=== PATIENT | male | born 1980 | race African-American/Black ===

== ENCOUNTER 2016-08-10 10:58 | Emergency (ER) | payer OTHER ==
--- NOTE | 2016-08-10 11:29 | ER Document Report ---
ED Psych Disorder / Suicide - General Chief Complaint: Suicidal Ideation Stated Complaint: PSYCH EVAL Time Seen by Provider: 08/10/16 11:16 Mode of Arrival: Ambulatory Information source: Patient Notes: This is a 35-year-old male with no significant past medical history who presents with suicidal ideation. He states that he has been going through marital difficulty and has felt depressed and suicidal for several weeks but it has gotten worse in the past few days. He has plans to drive his car over a bridge or to weight himself and jump off a peer into the ocean. [facility] but after describing his symptoms he was urged to come directly to the emergency department. He denies any history of antidepressant medications in the past. He did have a prior attempt at self- harm, several years ago he tried to swim out past the riptide of the ocean. TRAVEL OUTSIDE OF THE [place] IN LAST 30 DAYS: No - Related Data Allergies/Adverse Reactions: apple [Apple] Allergy (Severe, Verified 08/10/16 15:44) Anaphylaxis Past Medical History - Social History Smoking Status: Unknown if Ever Smoked Family History: Reviewed & Not Pertinent Patient has suicidal ideation: Yes Patient has homicidal ideation: Yes Renal/ Medical History: Denies: Hx Peritoneal Dialysis Review of Systems - Review of Systems Constitutional: No symptoms reported. denies: Chills, Fever EENT: No symptoms reported Cardiovascular: No symptoms reported Respiratory: No symptoms reported Gastrointestinal: No symptoms reported Musculoskeletal: No symptoms reported Skin: No symptoms reported Hematologic/Lymphatic: No symptoms reported Neurological/Psychological: See HPI, Depression, Suicidal ideation Physical Exam - Vital signs Vitals: Temp Pulse Resp BP Pulse Ox 97.8 F 63 18 151/95 H 100 08/10/16 11:08 08/10/16 11:08 08/10/16 11:08 08/10/16 11:08 08/10/16 11:08 - Notes Notes: PHYSICAL EXAMINATION: GENERAL: Well-appearing, well-nourished and in no acute distress. Good eye contact, cooperative with interview HEAD: Atraumatic, normocephalic. EYES: Pupils equal round and reactive to light, extraocular movements intact, sclera anicteric, conjunctiva are normal. ENT: nares patent, oropharynx clear without exudates. Moist mucous membranes. NECK: Normal range of motion, supple without lymphadenopathy LUNGS: Breath sounds clear to auscultation bilaterally and equal. No wheezes rales or rhonchi. HEART: Regular rate and rhythm without murmurs ABDOMEN: Soft, nontender, normoactive bowel sounds. EXTREMITIES: Normal range of motion NEUROLOGICAL: Cranial nerves grossly intact. No gross focal motor or sensory deficits appreciated PSYCH: Depressed mood, flat affect. Actively endorses SI. No AVH. Thought processes logical and goal directed. SKIN: Warm, Dry, normal turgor, no rashes Course - Vital Signs Vital signs: Temp Pulse Resp BP Pulse Ox 97.8 F 70 16 134/88 H 99 08/10/16 17:08 08/10/16 17:08 08/10/16 17:08 08/10/16 17:08 08/10/16 17:08 - Laboratory Result Diagrams: 08/10/16 11:30 08/10/16 13:40 Laboratory results interpreted by me: 08/10/16 08/10/16 11:30 13:40 RBC 6.15 H MCH 26.4 L Glucose 113 H Salicylates < 1.0 L Acetaminophen < 10 L Discharge - Discharge Clinical Impression: Suicidal ideation Depression Qualifiers: Depression Type: unspecified Qualified Code(s): F32.9 - Major depressive disorder, single episode, unspecified Condition: Stable Disposition: PSYCH HOSP/UNIT
[2016-08-10 11:47] LABS: ABSOLUTE EOSINOPHILS # (AUTO) 0.1 10^3/uL (0.0-0.6); ABSOLUTE LYMPHOCYTES (AUTO) 1.7 10^3/uL (0.5-4.7); ABSOLUTE MONOCYTES (AUTO) 0.5 10^3/uL (0.1-1.4); BASOPHILS % (AUTO) 0.8 % (0-2); EOSINOPHILS % (AUTO) 2.9 % (0-6); HEMATOCRIT 50.1 % (37.9-51.0); HEMOGLOBIN 16.2 g/dL (13.5-17.0); HGB HCT DIFFERENCE -1.5; LYMPHOCYTES % (AUTO) 38.4 % (13-45); MEAN CORPUSCULAR HEMOGLOBIN 26.4 pg (27.0-33.4); MEAN CORPUSCULAR HGB CONC 32.4 g/dL (32.0-36.0); MEAN CORPUSCULAR VOLUME 82 fl (80-97); MONOCYTES % (AUTO) 10.8 % (3-13); RED BLOOD COUNT 6.15 10^6/uL (4.35-5.55); RED CELL DISTRIBUTION WIDTH 13.8 % (11.5-14.0); SEGMENTED NEUTROPHILS % (AUTO) 47.1 % (42-78); WHITE BLOOD COUNT 4.3 10^3/uL (4.0-10.5)
[2016-08-10 12:00] LABS: APPEARANCE,URINE SLIGHTLY-CLOUDY; BILIRUBIN,URINE NEGATIVE (NEGATIVE); GLUCOSE, URINE NEGATIVE (NEGATIVE); KETONES,URINE NEGATIVE (NEGATIVE); LEUKOCYTE ESTERASE,URINE NEGATIVE (NEGATIVE); NITRITE,URINE NEGATIVE (NEGATIVE); PROTEIN,URINE NEGATIVE (NEGATIVE); URINE SPECIFIC GRAVITY 1.027; UROBILINOGEN,URINE NEGATIVE mg/dL (<2.0)
[2016-08-10 12:12] LABS: URINE BARBITURATES SCREEN NEGATIVE; URINE METHADONE SCREEN NEGATIVE; URINE OPIATES LOW NEGATIVE; URINE PHENCYCLIDINE SCREEN NEGATIVE
[2016-08-10 14:10] LABS: ALANINE AMINOTRANSFERASE 37 U/L (21-72); ALBUMIN 4.2 g/dL (3.5-5.0); ALKALINE PHOSPHATASE 83 U/L (38-126); ANION GAP 9 (5-19); ASPARTATE AMINO TRANSFERASE 45 U/L (17-59); BILIRUBIN,DIRECT 0.3 mg/dL (0.0-0.4); BILIRUBIN,TOTAL 0.7 mg/dL (0.2-1.3); BLOOD UREA NITROGEN 17 mg/dL (7-20); CALCIUM 9.5 mg/dL (8.4-10.2); CARBON DIOXIDE 26 mmol/L (22-30); CHLORIDE 105 mmol/L (98-107); CREATININE RESULT 1.01 mg/dL (0.52-1.25); GLUCOSE 113 mg/dL (75-110); SODIUM 140.4 mmol/L (137-145); TOTAL PROTEIN 8.1 g/dL (6.3-8.2)
[2016-08-10 14:14] LABS: ALCOHOL < 10 mg/dL (NONE DETECTED)
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
[2016-08-11] MEDS ORDERED: ZOLPIDEM TARTRATE 5 MG TABLET PO ONE (03:38)
--- NOTE | 2016-08-11 10:02 | EKG REPORT ---
SEVERITY:- BORDERLINE ECG - SINUS RHYTHM ST ELEV, PROBABLE NORMAL EARLY REPOL PATTERN : Confirmed by: Nevin Valenzuela 11-Aug-2016 10:00:57
[2016-08-11] MEDS ORDERED: OLANZAPINE 2.5 MG TABLET PO SCH (11:00)
[2016-08-11] MEDS ORDERED: DIVALPROEX SODIUM 500 MG TAB.SR.24H PO SCH (11:00)
[2016-08-11] MEDS ORDERED: BUSPIRONE HCL 10 MG TABLET PO SCH ×2 (11:00→22:00)
[2016-08-11] MEDS ORDERED: BUSPIRONE HCL 10 MG TABLET PO ONE (11:15)
--- NOTE | 2016-08-11 12:44 | ER Document Report ---
Doctor's Note Notes: 08/11/16 12:43 Rounds: Chart reviewed and patient interview. Patient still seems to be significantly clinically depressed. Lab studies have all been normal. Vital signs of all been essentially normal. Awaiting mental health recommendations. Patient appears to be medically stable for transfer or discharge. Ranjit Perdue MD
--- NOTE | 2016-08-11 16:57 | PSYCHOLOGICAL NOTE ---
Psych Note - Psych Note Psych Note: This is a 35-year-old male with no significant past medical history who presents with suicidal ideation. He states that he has been going through marital difficulty and has felt depressed and suicidal for several weeks but it has gotten worse in the past few days. He has plans to drive his car over a bridge or to weight himself and jump off a peer into the ocean. Today he called the [facility] to seek help in counseling, but after describing his symptoms he was urged to come directly to the emergency department. He denies any history of antidepressant medications in the past. He did have a prior attempt at self- harm, several years ago he tried to swim out past the riptide of the ocean. Patient is observed to be sitting sideways in a chair and rocking. Patient's room is organized, patient's bed is made to noticeable regulation for . Patient states that he does not think he has depression just anxiety. That " I just want my rocking chair." Patient has a history of traumatic brain injury. Patient states he went to the [facility] to get counseling and after speaking with them they told him to come to the emergency department. Clinician conducted visualization to assist the patient and his anxiety levels. Patient states "I love the ocean." Visualization included sitting at the ocean and engaging many senses as possible to include sight, sound, touch and smell. Patient visibly relaxed and stopped rocking. 311 (F32.9) Unspecified Depressive Disorder, per history 300.00 (F41.9) unspecified anxiety disorder per history Traumatic brain injury per Impression/plan; Patient is recommended to continue under IVC for further evaluation and disposition. Patient will be reevaluated. Dr. Pina was consulted on the care and management of this patient; attending physician is in agreement with recommendations and disposition.
[2016-08-11] MEDS ORDERED: CLONIDINE HCL 0.1 MG TABLET PO SCH (22:00)
--- NOTE | 2016-08-12 08:18 | PSYCHOLOGICAL NOTE ---
Psych Note - Psych Note Psych Note: This is a 35-year-old male with no significant past medical history who presents with suicidal ideation. He states that he has been going through marital difficulty and has felt depressed and suicidal for several weeks but it has gotten worse in the past few days. He has plans to drive his car over a bridge or to weight himself and jump off a peer into the ocean. [facility], but after describing his symptoms he was urged to come directly to the emergency department. He denies any history of antidepressant medications in the past. He did have a prior attempt at self- harm, several years ago he tried to swim out past the riptide of the ocean. 311 (F32.9) Unspecified Depressive Disorder, per history 300.00 (F41.9) unspecified anxiety disorder per history Traumatic brain injury per Impression/plan; Patient is recommended to continue under IVC. Patient was accepted to [facility]; transportation will occur today. Dr. Pina was consulted on the care and management of this patient; attending physician is in agreement with recommendations and disposition.
--- NOTE | 2016-08-12 08:57 | ER Document Report ---
Doctor's Note Notes: 08/12/16 08:57 Patient has been accepted at [facility] and has a bed, Dr. Alcazar is the accepting physician, law enforcement is at bedside and ready to transport. Patient has no complaints and is stable for transport.
[2016-08-12 09:10] VITALS: BP 142/78
[2016-08-12] MEDS ORDERED: BUSPIRONE HCL 10 MG TABLET PO SCH (10:00)
== END 2016-08-12 08:55 ==
LOC: ER 10:58
DX: F32.9 Major depressive disorder, single episode, unspecified (principal); R45.851 Suicidal ideations; R45.850 Homicidal ideations; Z63.5 Disruption of family by separation and divorce; Z91.5 Personal history of self-harm; Z87.892 Personal history of anaphylaxis; Z91.018 Allergy to other foods
CPT/HCPCS: 93005; 99285; 36415; 80307 ×4; 85025; 80053; 81001; 93010; J3490

== ENCOUNTER 2018-07-25 16:00 | Emergency (ER) | payer OTHER ==
[2018-07-25 16:22] LABS: ABSOLUTE EOSINOPHILS # (AUTO) 0.2 10^3/uL (0.0-0.6); ABSOLUTE LYMPHOCYTES (AUTO) 1.9 10^3/uL (0.5-4.7); ABSOLUTE MONOCYTES (AUTO) 0.5 10^3/uL (0.1-1.4); ABSOLUTE NEUT (AUTO) 2.9 10^3/uL (1.7-8.2); BASOPHILS % (AUTO) 0.7 % (0-2); EOSINOPHILS % (AUTO) 2.8 % (0-6); HEMATOCRIT 47.5 % (37.9-51.0); HEMOGLOBIN 15.7 g/dL (13.5-17.0); LYMPHOCYTES % (AUTO) 34.8 % (13-45); MEAN CORPUSCULAR HEMOGLOBIN 25.9 pg (27.0-33.4); MEAN CORPUSCULAR HGB CONC 33.1 g/dL (32.0-36.0); MEAN CORPUSCULAR VOLUME 78 fl (80-97); PLATELET COUNT 231 10^3/uL (150-450); RED BLOOD COUNT 6.06 10^6/uL (4.35-5.55); RED CELL DISTRIBUTION WIDTH 15.1 % (11.5-14.0); SEGMENTED NEUTROPHILS % (AUTO) 52.7 % (42-78); TOTAL CELLS COUNTED % (AUTO) 100 %; WHITE BLOOD COUNT 5.4 10^3/uL (4.0-10.5)
[2018-07-25 16:41] LABS: ALANINE AMINOTRANSFERASE 45 U/L (21-72); ALBUMIN 4.1 g/dL (3.5-5.0); ALKALINE PHOSPHATASE 101 U/L (38-126); ANION GAP 12 (5-19); ASPARTATE AMINO TRANSFERASE 52 U/L (17-59); BILIRUBIN,DIRECT 0.3 mg/dL (0.0-0.4); BILIRUBIN,TOTAL 0.5 mg/dL (0.2-1.3); BLOOD UREA NITROGEN 17 mg/dL (7-20); CALCIUM 9.1 mg/dL (8.4-10.2); CARBON DIOXIDE 24 mmol/L (22-30); CHLORIDE 106 mmol/L (98-107); CREATINE KINASE 725 U/L (55-170); GLUCOSE 93 mg/dL (75-110); POTASSIUM 4.2 mmol/L (3.6-5.0); SODIUM 141.5 mmol/L (137-145); TOTAL PROTEIN 8.1 g/dL (6.3-8.2)
--- NOTE | 2018-07-25 16:45 | RADIOLOGY REPORT (SQ) ---
EXAM DESCRIPTION: CHEST SINGLE VIEW COMPLETED DATE/TIME: 07/25/2018 4:25 pm REASON FOR STUDY: chest pain COMPARISON: None. EXAM PARAMETERS: NUMBER OF VIEWS: One view. TECHNIQUE: Single frontal radiographic view of the chest acquired. RADIATION DOSE: NA LIMITATIONS: None. FINDINGS: LUNGS AND PLEURA: No opacities, masses or pneumothorax. No pleural effusion. MEDIASTINUM AND HILAR STRUCTURES: No masses. Contour normal. HEART AND VASCULAR STRUCTURES: Heart normal in size. Normal vasculature. BONES: No acute findings. HARDWARE: None in the chest. OTHER: No other significant finding. IMPRESSION: NO ACUTE RADIOGRAPHIC FINDING IN THE CHEST. TECHNICAL DOCUMENTATION: JOB ID: [id number] [employer]- All Rights Reserved Reading location - IP/workstation name: [email or web address]
[2018-07-25 16:53] LABS: CREATINE KINASE MB 3.48 ng/mL (<4.55)
[2018-07-25 16:57] LABS: TROPONIN I < 0.012 ng/mL
[2018-07-25] MEDS ORDERED: KETOROLAC TROMETHAMINE INJ/PF 30 MG/1 ML SDV IV ONE (19:07)
--- NOTE | 2018-07-25 19:12 | EKG REPORT ---
SEVERITY:- NORMAL ECG - SINUS RHYTHM : Confirmed by: Erik Velázquez MD 25-Jul-2018 19:11:47
--- NOTE | 2018-07-25 19:21 | ER Document Report ---
ED General - General Chief Complaint: Chest Pain Stated Complaint: CHEST PAIN Time Seen by Provider: 07/25/18 17:22 Notes: 37-year-old male the emergency department chief complaint of chest pain. Patient states that pain is been present for about 2 months. Went to the [facility] today and they sent him here because he was having chest pain. States that he gets pain in the left side of his chest and then feels some numbness and tingling going down the left arm. Hurts to move. Hurts to push on the pectoralis on the left side. Denies any shortness of breath. No prior history of any kind of cardiac problems. No significant family history of heart problems. No prior history of blood clots or DVTs. TRAVEL OUTSIDE OF THE U[place] IN LAST 30 DAYS: No - HPI Onset: Other - Months ago Onset/Duration: Gradual Quality of pain: Achy Severity: Mild Pain Level: 1 - Related Data Allergies/Adverse Reactions: apple [Apple] Allergy (Severe, Verified 07/25/18 16:16) Anaphylaxis Past Medical History - General Information source: Patient - Social History Smoking Status: Never Smoker Frequency of alcohol use: None Drug Abuse: None Lives with: Spouse/Significant other Family History: Reviewed & Not Pertinent Patient has suicidal ideation: No Patient has homicidal ideation: No - Past Medical History Cardiac Medical History: Reports: None Pulmonary Medical History: Reports: Hx Asthma Renal/ Medical History: Denies: Hx Peritoneal Dialysis Past Surgical History: Reports: Hx Abdominal Surgery - iing. jacob, "lymph node" sx, RLQ, Hx Orthopedic Surgery - right knee - Immunizations Hx Diphtheria, Pertussis, Tetanus Vaccination: Yes Review of Systems - Review of Systems Notes: Constitutional: denies: Chills, Diaphoresis, Fever, Malaise, Weakness EENT: denies: Eye discharge, Blurred vision, Tearing, Double vision, Nose congestion, Nose discharge, Throat swelling, Mouth pain Cardiovascular: denies: Palpitations, Heart racing, Orthopnea, Dyspnea, +Chest pain Respiratory: denies: Cough, Hurts to breathe, Wheezing, Shortness of breath Gastrointestinal: denies: Abdominal pain, Diarrhea, Nausea, Vomiting, Black stools, bright red blood in stool Genitourinary: denies: Burning, Dysuria, Discharge, Frequency, Flank pain, Hematuria Musculoskeletal: denies: Joint pain, Joint swelling, Muscle pain, Muscle stiffness, back pain Hematologic/Lymphatic: denies: Anemia, Easy bleeding, Easy bruising, Blood clots Neurological/Psychological: denies: Confusion, Dementia, Depression, Loss of consciousness Skin: No lesions, no masses, no skin breakdown, no abscesses Physical Exam - Vital signs Vitals: Resp Pulse Ox 17 97 07/25/18 16:06 07/25/18 16:06 Interpretation: Normal - Notes Notes: Very muscular fit 37-year-old well-appearing -Portuguese male - General General appearance: Appears well, Alert - HEENT Head: Normocephalic, Atraumatic Eyes: Normal Pupils: PERRL - Respiratory Respiratory status: No respiratory distress Chest status: Nontender Breath sounds: Normal Chest palpation: Normal - Cardiovascular Rhythm: Regular Heart sounds: Normal auscultation Murmur: No Notes: Mild reproducible pain to palpation on the left pectoralis/chest wall area. - Abdominal Inspection: Normal Distension: No distension Bowel sounds: Normal Tenderness: Nontender Organomegaly: No organomegaly - Back Back: Normal, Nontender - Extremities General upper extremity: Normal inspection, Nontender, Normal color, Normal ROM, Normal temperature General lower extremity: Normal inspection, Nontender, Normal color, Normal ROM, Normal temperature, Normal weight bearing. No: Lindsey's sign - Neurological Neuro grossly intact: Yes Cognition: Normal Orientation: AAOx4 [place] Coma Scale Eye Opening: Spontaneous Annita Coma Scale Verbal: Oriented [place] Coma Scale Motor: Obeys Commands Annita Coma Scale Total: 15 Speech: Normal Motor strength normal: LUE, RUE, LLE, RLE Sensory: Normal - Psychological Associated symptoms: Normal affect, Normal mood - Skin Skin Temperature: Warm Skin Moisture: Dry Skin Color: Normal, Other - Signs of rash Course - Re-evaluation Re-evalutation: 07/25/18 21:26 Patient is feeling better after the fluids and Toradol. Pain is almost completely gone now. 07/25/18 22:01 Creatinine kinase coming down a little bit. Troponin is negative. At this time patient is feeling much better. Comfortable discharging at this time in stable condition. Laboratory 07/25/18 07/25/18 07/25/18 16:07 16:07 16:07 WBC 5.4 RBC 6.06 H Hgb 15.7 Hct 47.5 MCV 78 L MCH 25.9 L MCHC 33.1 RDW 15.1 H Plt Count 231 Seg Neutrophils % 52.7 Lymphocytes % 34.8 Monocytes % 9.0 Eosinophils % 2.8 Basophils % 0.7 Absolute Neutrophils 2.9 Absolute Lymphocytes 1.9 Absolute Monocytes 0.5 Absolute Eosinophils 0.2 Absolute Basophils 0.0 Sodium 141.5 Potassium 4.2 Chloride 106 Carbon Dioxide 24 Anion Gap 12 BUN 17 Creatinine 0.99 Est GFR ( Amer) > 60 Est GFR (Non-Af Amer) > 60 Glucose 93 Calcium 9.1 Total Bilirubin 0.5 Direct Bilirubin 0.3 Neonat Total Bilirubin Not Reportable Neonat Direct Bilirubin Not Reportable Neonat Indirect Bili Not Reportable AST 52 ALT 45 Alkaline Phosphatase 101 Creatine Kinase 725 H CK-MB (CK-2) 3.48 Troponin I < 0.012 Total Protein 8.1 Albumin 4.1 07/25/18 07/25/18 07/25/18 20:05 20:05 20:05 WBC RBC Hgb Hct MCV MCH MCHC RDW Plt Count Seg Neutrophils % Lymphocytes % Monocytes % Eosinophils % Basophils % Absolute Neutrophils Absolute Lymphocytes Absolute Monocytes Absolute Eosinophils Absolute Basophils Sodium Potassium Chloride Carbon Dioxide Anion Gap BUN Creatinine Est GFR ( Amer) Est GFR (Non-Af Amer) Glucose Calcium Total Bilirubin Direct Bilirubin Neonat Total Bilirubin Neonat Direct Bilirubin Neonat Indirect Bili AST ALT Alkaline Phosphatase Creatine Kinase 685 H CK-MB (CK-2) 2.98 Troponin I < 0.012 Total Protein Albumin Chest X-Ray 07/25/18 16:05 IMPRESSION: NO ACUTE RADIOGRAPHIC FINDING IN THE CHEST. - Vital Signs Vital signs: Temp Pulse Resp BP Pulse Ox 98.0 F 19 134/97 H 98 07/25/18 16:12 07/25/18 20:32 07/25/18 20:01 07/25/18 20:32 - Laboratory Result Diagrams: 07/25/18 16:07 07/25/18 16:07 Laboratory results interpreted by me: 07/25/18 07/25/18 07/25/18 16:07 16:07 20:05 RBC 6.06 H MCV 78 L MCH 25.9 L RDW 15.1 H Creatine Kinase 725 H 685 H - EKG Interpretation by [facility] EKG shows normal: Sinus rhythm, [place], Intervals, QRS Complexes, ST-T Waves Discharge - Discharge Clinical Impression: Elevated creatine kinase, Chest wall pain Condition: Good Disposition: HOME, SELF-CARE Instructions: Anti-Inflammatory Medication ([facility]), Chest Pain of Unclear Cause ([facility]) Additional Instructions: Continue to drink plenty of fluids. Follow-up with your regular doctor for repeat testing if symptoms persist. Avoid any medications which can cause muscle breakdown such as cholesterol medications until repeat evaluation is performed by your doctor. In the event that symptoms are getting worse return immediately for repeat evaluation. At this time, I recommend taking an anti- inflammatory medication such as naproxen or ibuprofen 2-3 times a day for the next several days. Make sure you are are drinking plenty of fluids. Avoid any strenuous muscular activity for the next week as well. Forms: Return to Work Referrals: [facility] [Provider Group] - Follow up in 3-5 days
[2018-07-25] MEDS: NORMAL SALINE 1000 ML 1,000 ML IV PRN ×2 (19:28→21:40)
[2018-07-25 22:07] VITALS: BP 161/105
== END 2018-07-25 22:16 | disposition home or self-care (01) ==
LOC: ER 16:00
DX: R74.8 Abnormal levels of other serum enzymes (principal); R07.89 Other chest pain; J45.909 Unspecified asthma, uncomplicated
CPT/HCPCS: 93005; 99284; 96361; 96374; 36415; 82553; 82550; 85025; 80053; 84484; 71045; 93010; J1885; J7030

== ENCOUNTER 2018-07-30 09:28 | Emergency (ER) | payer OTHER ==
--- NOTE | 2018-07-30 10:12 | RADIOLOGY REPORT (SQ) ---
EXAM DESCRIPTION: CHEST 2 VIEWS COMPLETED DATE/TIME: 07/30/2018 10:01 am REASON FOR STUDY: chest pain COMPARISON: 07/25/2018. EXAM PARAMETERS: NUMBER OF VIEWS: two views TECHNIQUE: Digital Frontal and Lateral radiographic views of the chest acquired. RADIATION DOSE: NA LIMITATIONS: none FINDINGS: LUNGS AND PLEURA: No opacities, masses or pneumothorax. No pleural effusion. MEDIASTINUM AND HILAR STRUCTURES: No masses or contour abnormalities. HEART AND VASCULAR STRUCTURES: Heart normal size. No evidence for failure. BONES: No acute findings. HARDWARE: None in the chest. OTHER: No other significant finding. IMPRESSION: NO ACUTE RADIOGRAPHIC FINDING IN THE CHEST. TECHNICAL DOCUMENTATION: JOB ID: [id number] [employer]- All Rights Reserved Reading location - IP/workstation name: [email or web address]
--- NOTE | 2018-07-30 10:21 | ER Document Report ---
ED Medical Screen (RME) - General Chief Complaint: Chest Pain Stated Complaint: CHEST PAIN Time Seen by Provider: 07/30/18 10:14 Mode of Arrival: Ambulatory Information source: Patient TRAVEL OUTSIDE OF THE [place] IN LAST 30 DAYS: No - HPI Patient complains to provider of: BREANNA Notes: 07/30/18 10:20 Patient here with complaints of chest pain. The patient has had chest pain for about 2 months now. Seen at the [facility] on and was sent here for evaluation. His evaluation was unremarkable aside from an elevated CK of over 600. Troponin was negative. Chest x-ray was negative. EKG was unremarkable. He went back to the [facility] today and was sent back to the emergency department because he continues to have the left-sided chest pain that radiates down his left arm. He denies any recent long trips or surgeries, leg pain or leg swelling, cancer, history of DVT or PE. He denies any drug use. Exam No distress, nontoxic-appearing. Lungs clear and equal throughout. Heart sounds normal. Plan CBC, CMP, CPK, CK-MB, troponin, EKG. I have not repeated his chest x-ray as he just had one a few days ago. An initial examination was made on the patient as part of the triage process, and it was determined a more comprehensive evaluation was necessary. Initial labs were ordered and patient was transferred to another provider in the ED who assumed care and finished evaluation and plan. - Related Data Allergies/Adverse Reactions: apple [Apple] Allergy (Severe, Verified 07/25/18 16:16) Anaphylaxis Past Medical History Pulmonary Medical History: Reports: Hx Asthma Renal/ Medical History: Denies: Hx Peritoneal Dialysis Past Surgical History: Reports: Hx Abdominal Surgery - iing. jacob, "lymph node" sx, RLQ, Hx Orthopedic Surgery - right knee - Immunizations Hx Diphtheria, Pertussis, Tetanus Vaccination: Yes Physical Exam - Vital signs Vitals: Temp Pulse Resp BP Pulse Ox 97.9 F 66 16 150/97 H 96 07/30/18 09:41 07/30/18 09:41 07/30/18 09:41 07/30/18 09:41 07/30/18 09:41 Course - Vital Signs Vital signs: Temp Pulse Resp BP Pulse Ox 97.9 F 66 16 150/97 H 96 07/30/18 09:41 07/30/18 09:41 07/30/18 09:41 07/30/18 09:41 07/30/18 09:41
[2018-07-30 10:43] LABS: ABSOLUTE EOSINOPHILS # (AUTO) 0.1 10^3/uL (0.0-0.6); ABSOLUTE LYMPHOCYTES (AUTO) 1.6 10^3/uL (0.5-4.7); ABSOLUTE MONOCYTES (AUTO) 0.3 10^3/uL (0.1-1.4); ABSOLUTE NEUT (AUTO) 2.7 10^3/uL (1.7-8.2); BASOPHILS % (AUTO) 0.8 % (0-2); EOSINOPHILS % (AUTO) 1.6 % (0-6); HEMATOCRIT 47.4 % (37.9-51.0); HEMOGLOBIN 15.6 g/dL (13.5-17.0); LYMPHOCYTES % (AUTO) 34.4 % (13-45); MEAN CORPUSCULAR HEMOGLOBIN 25.5 pg (27.0-33.4); MEAN CORPUSCULAR HGB CONC 32.9 g/dL (32.0-36.0); MEAN CORPUSCULAR VOLUME 78 fl (80-97); MONOCYTES % (AUTO) 7.3 % (3-13); PLATELET COUNT 229 10^3/uL (150-450); RED BLOOD COUNT 6.13 10^6/uL (4.35-5.55); RED CELL DISTRIBUTION WIDTH 15.1 % (11.5-14.0); SEGMENTED NEUTROPHILS % (AUTO) 55.9 % (42-78); TOTAL CELLS COUNTED % (AUTO) 100 %; WHITE BLOOD COUNT 4.7 10^3/uL (4.0-10.5)
[2018-07-30 10:44] LABS: INTERNATIONAL RATION (INR) 0.92; PROTHROMBIN TIME 12.9 SEC (11.4-15.4)
[2018-07-30 11:06] LABS: ALANINE AMINOTRANSFERASE 45 U/L (21-72); ALBUMIN 4.2 g/dL (3.5-5.0); ALKALINE PHOSPHATASE 108 U/L (38-126); ANION GAP 10 (5-19); ASPARTATE AMINO TRANSFERASE 52 U/L (17-59); BILIRUBIN,DIRECT 0.2 mg/dL (0.0-0.4); BILIRUBIN,TOTAL 0.5 mg/dL (0.2-1.3); BLOOD UREA NITROGEN 14 mg/dL (7-20); CALCIUM 9.4 mg/dL (8.4-10.2); CARBON DIOXIDE 28 mmol/L (22-30); CHLORIDE 106 mmol/L (98-107); CREATINE KINASE 774 U/L (55-170); GLUCOSE 88 mg/dL (75-110); POTASSIUM 4.1 mmol/L (3.6-5.0); TOTAL PROTEIN 8.3 g/dL (6.3-8.2)
[2018-07-30 11:15] LABS: CREATINE KINASE MB 3.38 ng/mL (<4.55)
[2018-07-30 11:19] LABS: TROPONIN I < 0.012 ng/mL
[2018-07-30] MEDS ORDERED: KETOROLAC TROMETHAMINE INJ/PF 30 MG/1 ML SDV IV ONE (14:23)
--- NOTE | 2018-07-30 14:29 | ER Document Report ---
ED Cardiac - General Chief Complaint: Chest Pain Stated Complaint: CHEST PAIN Time Seen by Provider: 07/30/18 10:14 Mode of Arrival: Ambulatory TRAVEL OUTSIDE OF THE [place]. IN LAST 30 DAYS: No - HPI Notes: Patient is a 37-year-old male that presents to the emergency department for chief complaint of chest pain. Patient complaining of left-sided chest pain that radiates down his left arm. He reports some paresthesias in the left arm when the pain gets severe. His pain is been constant for the last 2 months with episodes of exacerbated pain. He states he was seen in the emergency room recently and told he had elevated CK levels. After fluids and Toradol he was feeling better and was discharged home. [facility] since his symptoms have continued. Patient states his pain is worse sometimes when he lies flat, sits up, or breathes. He denies any particular shortness of breath or difficulty breathing. He denies associated fevers, chills, syncope and palpitations. He states he has been drinking lots of water since previously seen and denies any heavy exertion. Past Medical History: Asthma, borderline hypertension Past Surgical History: Left knee arthroscopy, right inguinal hernia repair Social History: Denies drugs alcohol and tobacco Family History: Reviewed and noncontributory for presenting illness Allergies: Reviewed, see documented allergy list. REVIEW OF SYSTEMS: CONSTITUTIONAL : No fever No chills No diaphoresis No recent illness EENT: No vision changes No congestion No sore throat CARDIOVASCULAR: chest pain No palpitations RESPIRATORY: No shortness of breath No cough No difficulty breathing GASTROINTESTINAL: No abdominal pain No nausea No vomiting No diarrhea GENITOURINARY: No dysuria No hematuria No difficulty urinating MUSCULOSKELETAL: No back pain No leg pain No arm pain SKIN: No rashes No lesions LYMPHATIC: No swollen, enlarged glands. NEUROLOGICAL: No lightheadedness No headache No weakness paresthesias PSYCHIATRIC: No anxiety No depression PHYSICAL EXAMINATION: Vital signs reviewed, nursing noted reviewed. GENERAL: Well-appearing, well-nourished and in no acute distress. HEAD: Atraumatic, normocephalic. EYES: Eyes appear normal, extraocular movements intact, sclera anicteric, conjunctiva are normal. ENT: nares patent, oropharynx clear without exudates. Moist mucous membranes. NECK: Normal range of motion, supple without lymphadenopathy LUNGS: Minimal left pectoral tenderness, breath sounds clear to auscultation bilaterally and equal. No wheezes rales or rhonchi. HEART: Regular rate and rhythm without murmurs ABDOMEN: Soft, nontender, normoactive bowel sounds. No rebound, guarding, or rigidity. No masses appreciated. EXTREMITIES: Normal left shoulder exam. Nontender, good range of motion, no pitting or edema. NEUROLOGICAL: No focal neurological deficits. Moves all extremities s pontaneously Motor and sensory grossly intact on exam. PSYCH: Normal mood, normal affect. SKIN: Warm, Dry, normal turgor, no rashes or lesions noted on exposed skin - Related Data Allergies/Adverse Reactions: apple [Apple] Allergy (Severe, Verified 07/25/18 16:16) Anaphylaxis Past Medical History - General Information source: Patient - Social History Smoking Status: Never Smoker Chew tobacco use (# tins/day): No Frequency of alcohol use: None Drug Abuse: None Family History: Reviewed & Not Pertinent Patient has suicidal ideation: No Patient has homicidal ideation: No Pulmonary Medical History: Reports: Hx Asthma Renal/ Medical History: Denies: Hx Peritoneal Dialysis Past Surgical History: Reports: Hx Abdominal Surgery - iing. jacob, "lymph node" sx, RLQ, Hx Orthopedic Surgery - right knee - Immunizations Hx Diphtheria, Pertussis, Tetanus Vaccination: Yes Physical Exam - Vital signs Vitals: Temp Pulse Resp BP Pulse Ox 97.9 F 66 16 150/97 H 96 07/30/18 09:41 07/30/18 09:41 07/30/18 09:41 07/30/18 09:41 07/30/18 09:41 Course - Re-evaluation Re-evalutation: 07/30/18 14:28 Vitals reviewed. Nursing notes reviewed. Patient has elevated CK at 774. Chart review shows that this is a similar CK from his previous visit which improved after IV fluids. Patient was ordered IV fluids and Toradol for symptom medic management. The remainder of his blood work ordered in triage is unremarkable. I will add on ESR and CRP to evaluate for possible pericarditis versus myocarditis. Patient does have a negative troponin. He has no known risk factors for PE however his pain is reproducible with inspiration and has persisted therefore CTA of the chest will be ordered to evaluate for underlying PE. Patient is oxygenating well on room air and in no acute distress currently. 07/30/18 20:48 CTA shows no PE. Laboratory 07/30/18 07/30/18 07/30/18 02:44 10:29 10:29 WBC 4.7 RBC 6.13 H Hgb 15.6 Hct 47.4 MCV 78 L MCH 25.5 L MCHC 32.9 RDW 15.1 H Plt Count 229 Seg Neutrophils % 55.9 Lymphocytes % 34.4 Monocytes % 7.3 Eosinophils % 1.6 Basophils % 0.8 Absolute Neutrophils 2.7 Absolute Lymphocytes 1.6 Absolute Monocytes 0.3 Absolute Eosinophils 0.1 Absolute Basophils 0.0 ESR PT 12.9 INR 0.92 Sodium 144.0 Potassium 4.1 Chloride 106 Carbon Dioxide 28 Anion Gap 10 BUN 14 Creatinine 1.06 Est GFR ( Amer) > 60 Est GFR (Non-Af Amer) > 60 Glucose 88 Calcium 9.4 Total Bilirubin 0.5 Direct Bilirubin 0.2 Neonat Total Bilirubin Not Reportable Neonat Direct Bilirubin Not Reportable Neonat Indirect Bili Not Reportable AST 52 ALT 45 Alkaline Phosphatase 108 Creatine Kinase 774 H CK-MB (CK-2) Troponin I C-Reactive Protein Total Protein 8.3 H Albumin 4.2 07/30/18 07/30/18 07/30/18 10:29 10:29 10:29 WBC RBC Hgb Hct MCV MCH MCHC RDW Plt Count Seg Neutrophils % Lymphocytes % Monocytes % Eosinophils % Basophils % Absolute Neutrophils Absolute Lymphocytes Absolute Monocytes Absolute Eosinophils Absolute Basophils ESR 16 H PT INR Sodium Potassium Chloride Carbon Dioxide Anion Gap BUN Creatinine Est GFR ( Amer) Est GFR (Non-Af Amer) Glucose Calcium Total Bilirubin Direct Bilirubin Neonat Total Bilirubin Neonat Direct Bilirubin Neonat Indirect Bili AST ALT Alkaline Phosphatase Creatine Kinase CK-MB (CK-2) 3.38 Troponin I < 0.012 C-Reactive Protein 9.4 Total Protein Albumin 07/30/18 07/30/18 17:18 17:18 WBC RBC Hgb Hct MCV MCH MCHC RDW Plt Count Seg Neutrophils % Lymphocytes % Monocytes % Eosinophils % Basophils % Absolute Neutrophils Absolute Lymphocytes Absolute Monocytes Absolute Eosinophils Absolute Basophils ESR PT INR Sodium Potassium Chloride Carbon Dioxide Anion Gap BUN Creatinine Est GFR ( Amer) Est GFR (Non-Af Amer) Glucose Calcium Total Bilirubin Direct Bilirubin Neonat Total Bilirubin Neonat Direct Bilirubin Neonat Indirect Bili AST ALT Alkaline Phosphatase Creatine Kinase 677 H CK-MB (CK-2) Troponin I < 0.012 C-Reactive Protein Total Protein Albumin Chest X-Ray 07/30/18 00:00 IMPRESSION: NO ACUTE RADIOGRAPHIC FINDING IN THE CHEST. Chest/Abdomen CTA 07/30/18 14:24 IMPRESSION: NORMAL CTA OF THE CHEST. NO PULMONARY EMBOLI. Patient CK has improved. His delta troponin is negative. Echo shows some mild LVH and grade 1 diastolic heart failure. Patient is hemodynamically stable. He will follow with Dr. Burden in the office tomorrow or talk to the [place] for warehouse administrative assistant referral if he is having issues with insurance. Patient was encouraged to continue following with cardiology as well as staying hydrated. He was counseled on return precautions. He is discharged home in stable condition. - Vital Signs Vital signs: Temp Pulse Resp BP Pulse Ox 97.5 F 58 L 14 144/104 H 100 07/30/18 18:26 07/30/18 18:26 07/30/18 18:26 07/30/18 18:26 07/30/18 18:26 - Laboratory Result Diagrams: 07/30/18 10:29 07/30/18 02:44 Laboratory results interpreted by me: 07/30/18 07/30/18 07/30/18 02:44 10:29 10:29 RBC 6.13 H MCV 78 L MCH 25.5 L RDW 15.1 H ESR 16 H Creatine Kinase 774 H Total Protein 8.3 H 07/30/18 17:18 RBC MCV MCH RDW ESR Creatine Kinase 677 H Total Protein - EKG Interpretation by Me Additional EKG results interpreted by me: 07/30/18 14:29 Interpreted by myself [id number]: Normal sinus rhythm, rate 64, normal axis, no ectopy, no STEMI Discharge - Discharge Clinical Impression: Elevated CK Diastolic heart failure Qualifiers: Heart failure chronicity: acute Qualified Code(s): I50.31 - Acute diastolic (congestive) heart failure Condition: Stable Disposition: HOME, SELF-CARE Instructions: Chest Pain of Unclear Cause ([facility]), Congestive Heart Failure ([facility]) Additional Instructions: Please return to the emergency department if you have any worsening, or concern of your symptoms. Please return to the emergency department if you develop chest pain, difficulty breathing, severe abdominal pain, or ongoing vomiting. Please follow-up with your primary care physician in 2-3 days and any other recommended physicians. If prescribed, take all medications as directed. If you have any questions or concerns do not hesitate to return the emergency department for evaluation. Your echo today showed mild heart failure and a mildly enlarged left side of your heart. You need to follow with the warehouse administrative assistant for further testing regarding your chest discomfort, elevated CK and heart failure. Referrals: PARISH BURDEN MD [ACTIVE STAFF] - Follow up tomorrow
[2018-07-30] MEDS: NORMAL SALINE 1000 ML 1,000 ML IV PRN ×2 (15:05→16:19)
--- NOTE | 2018-07-30 15:35 | RADIOLOGY REPORT (SQ) ---
EXAM DESCRIPTION: CTA CHEST COMPLETED DATE/TIME: 07/30/2018 3:23 pm REASON FOR STUDY: left chest pain COMPARISON: None. TECHNIQUE: CT scan of the chest performed using helical scanning technique with dynamic intravenous contrast injection. Images reviewed with lung, soft tissue and bone windows. Reconstructed coronal and sagittal MPR images reviewed. Additional 3 dimensional post-processing performed to develop Maximal Intensity Projection images (NC P). All images stored on PACS. All CT scanners at this facility use dose modulation, iterative reconstruction, and/or weight based d osing when appropriate to reduce radiation dose to as low as reasonably achievable (ALARA). [facility]: Dose Right [facility]: CareDose [facility]: Dose Right [facility]: Teradose 4D [facility]: [employer] Experience CONTRAST TYPE AND DOSE: contrast/concentration: Isovue 350.00 mg/ml; Total Contrast Delivered: 87.0 ml; Total Saline Delivered: 80.0 ml Contrast bolus optimized for the pulmonary arteries. Not diagnostic for the aorta. RENAL FUNCTION: GFR > 60. RADIATION DOSE: CT Rad equipment meets quality standard of care and radiation dose reduction techniq ues were employed. CTDIvol: 28.6 - 52.9 mGy. DLP: 1177 mGy-cm. . LIMITATIONS: None. FINDINGS: LUNGS AND PLEURA: No masses, infiltrates, or pneumothorax. No pleural effusions or pleura l calcifications. AORTA AND GREAT VESSELS: No aneurysm. Contrast bolus not optimized for the aorta. HEART: No pericardial effusion. No significant coronary artery calcifications. PULMONARY ARTERIES: No emboli visualized in the main pulmonary arteries or the segmental branches. HILAR AND MEDIASTINAL STRUCTURES: No identified masses or abnormal nodes. HARDWARE: None in the chest. UPPER ABDOMEN: No significant findings. Limited exam. THYROID AND OTHER SOFT TISSUES: No masses. No adenopathy. BONES: No acute or significant finding. 3D MIPS: Confirm above findings. OTHER: No other significant finding. IMPRESSION: NORMAL CTA OF THE CHEST. NO PULMONARY EMBOLI. COMMENT: Quality ID # [id number]: Final reports with documentation of one or more dose reduction techniques (e.g., Automated exposure control, adjustment of the mA and/or kV according to patient size, use of iterative reconstruction technique) TECHNICAL DOCUMENTATION: JOB ID: [id number] [employer]- All Rights Reserved Reading location - IP/workstation name: [email or web address]
--- NOTE | 2018-07-30 19:49 | XCELERA REPORT ---
[address] [address] Transthoracic Echocardiogram Report Name: MERVAT LITTLEJOHN Age: 37 yrs Gender: Male : 1980 Patient Status: Emergency Patient Location: ER Study Date: 07/30/2018 05:41 PM Height: 70 in Weight: 258 lb BSA: 2.3 m2 Procedure: A complete two-dimensional transthoracic echocardiogram was performed (2D, M-mode, spectral and color flow Doppler). The study was technically adequate with some images being suboptimal in quality. Reason For Study: chest pain Ordering Physician: NICOLASA MONTESINOS Performed By: Yaneth Blevins Interpretation Summary Left ventricular systolic function is low normal. Doppler measurements suggest impaired left ventricular relaxation, which is associated with grade I/IV or mild diastolic dysfunction There is mild concentric left ventricular hypertrophy. The left ventricle is normal in size. No regional wall motion abnormalities noted. The right ventricular systolic function is normal. The left atrium is borderline dilated. The right atrium is normal in size There is a trace amount of mitral regurgitation There is no mitral valve stenosis. No aortic regurgitation is present. There is no aortic valve stenosis There is a trace to mild amount of tricuspid regurgitation Right ventricular systolic pressure is at the upper limits of normal The aortic root is not well visualized but is probably normal size. The inferior vena cava was not well visualized There is no pericardial effusion. MMode/2D Measurements & Calculations RVDd: 2.5 cm LVIDd: 5.5 cm FS: 28.4 % Ao root diam: 3.2 cm IVSd: 0.87 cm LVIDs: 3.9 cm EDV(Teich): 145.0 ml Ao root area: 7.8 cm2 LVPWd: 1.0 cm ESV(Teich): 66.3 ml LA dimension: 3.4 cm EF(Teich): 54.3 % Doppler Measurements & Calculations MV E max arnold: MV P1/2t max arnold: Ao V2 max: LV V1 max P.4 cm/sec 98.2 cm/sec 113.8 cm/sec 3.7 mmHg MV A max arnold: MV P1/2t: 52.5 msec Ao max PG: LV V1 max: 64.7 cm/sec MVA(P1/2t): 4.2 cm2 5.2 mmHg 96.7 cm/sec MV E/A: 1.3 MV dec slope: 547.7 cm/sec2 MV dec time: 0.18 sec PA V2 max: PI end-d arnold: TR max arnold: MV P1/2t-pr_phl: 135.7 cm/sec 141.2 cm/sec 252.5 cm/sec 52.5 msec PA max PG: TR max P.4 mmHg 25.5 mmHg Left Ventricle The left ventricle is normal in size. There is mild concentric left ventricular hypertrophy. Left ventricular systolic function is low normal. Doppler measurements suggest impaired left ventricular relaxation, which is associated with grade I/IV or mild diastolic dysfunction. No regional wall motion abnormalities noted. Right Ventricle The right ventricle is grossly normal size. There is normal right ventricular wall thickness. The right ventricular systolic function is normal. Atria The right atrium is normal in size. The left atrium is borderline dilated. Interarterial septum not well visualized and not well dopplered. Cannot comment on ASD/PFO presence. Mitral Valve The mitral valve leaflets are sclerotic, but show no functional abnormalities. There is no mitral valve stenosis. There is a trace amount of mitral regurgitation. Aortic Valve The aortic valve opens well. There is no aortic valve stenosis. No aortic regurgitation is present. Tricuspid Valve The tricuspid valve is not well visualized, but is grossly normal. There is no tricuspid stenosis. There is a trace to mild amount of tricuspid regurgitation. Right ventricular systolic pressure is at the upper limits of normal. Pulmonic Valve The pulmonic valve is not well visualized. Great Vessels The aortic root is not well visualized but is probably normal size. The inferior vena cava was not well visualized. Effusions There is no pericardial effusion. : NICOLASA MONTESINOS > Nevin Valenzuela
[2018-07-30] MEDS ORDERED: ACETAMINOPHEN 325 MG TABLET PO ONE (20:55)
[2018-07-30 21:16] VITALS: BP 147/91
--- NOTE | 2018-08-01 11:00 | EKG REPORT ---
SEVERITY:- NORMAL ECG - SINUS RHYTHM : Confirmed by: Nevin Valenzuela 01-Aug-2018 10:59:01
== END 2018-07-30 21:16 | disposition home or self-care (01) ==
LOC: ER 09:28
DX: I50.31 Acute diastolic (congestive) heart failure (principal); R79.89 Other specified abnormal findings of blood chemistry; R07.9 Chest pain, unspecified
CPT/HCPCS: 93005; 99285; 96361; 96374; 36415; 82553; 82550; 85025; 85652; 85610; 86140; 80053; 84484; 93306; 71046; 71275; 93010; J1885; J7030

== ENCOUNTER 2019-03-20 12:13 | Emergency (ER) | payer OTHER ==
[2019-03-20 13:01] LABS: ABSOLUTE EOSINOPHILS # (AUTO) 0.1 10^3/uL (0.0-0.6); ABSOLUTE LYMPHOCYTES (AUTO) 1.6 10^3/uL (0.5-4.7); ABSOLUTE MONOCYTES (AUTO) 0.5 10^3/uL (0.1-1.4); ABSOLUTE NEUT (AUTO) 4.2 10^3/uL (1.7-8.2); BASOPHILS % (AUTO) 0.6 % (0-2); EOSINOPHILS % (AUTO) 0.8 % (0-6); HEMATOCRIT 47.2 % (37.9-51.0); HEMOGLOBIN 15.9 g/dL (13.5-17.0); LYMPHOCYTES % (AUTO) 25.3 % (13-45); MEAN CORPUSCULAR HEMOGLOBIN 26.7 pg (27.0-33.4); MEAN CORPUSCULAR HGB CONC 33.7 g/dL (32.0-36.0); MEAN CORPUSCULAR VOLUME 79 fl (80-97); MONOCYTES % (AUTO) 8.1 % (3-13); PLATELET COUNT 215 10^3/uL (150-450); RED BLOOD COUNT 5.96 10^6/uL (4.35-5.55); RED CELL DISTRIBUTION WIDTH 14.1 % (11.5-14.0); SEGMENTED NEUTROPHILS % (AUTO) 65.2 % (42-78); TOTAL CELLS COUNTED % (AUTO) 100 %; WHITE BLOOD COUNT 6.5 10^3/uL (4.0-10.5)
[2019-03-20 13:28] LABS: ALBUMIN 4.5 g/dL (3.5-5.0); ALKALINE PHOSPHATASE 109 U/L (38-126); ANION GAP 9 (5-19); ASPARTATE AMINO TRANSFERASE 38 U/L (17-59); BILIRUBIN,DIRECT 0.2 mg/dL (0.0-0.4); BILIRUBIN,TOTAL 0.5 mg/dL (0.2-1.3); BLOOD UREA NITROGEN 16 mg/dL (7-20); CALCIUM 9.6 mg/dL (8.4-10.2); CARBON DIOXIDE 28 mmol/L (22-30); CHLORIDE 103 mmol/L (98-107); CREATINE KINASE 338 U/L (55-170); GLUCOSE 77 mg/dL (75-110); POTASSIUM 4.3 mmol/L (3.6-5.0); TOTAL PROTEIN 8.9 g/dL (6.3-8.2)
--- NOTE | 2019-03-20 13:30 | RADIOLOGY REPORT (SQ) ---
EXAM DESCRIPTION: CHEST 2 VIEWS COMPLETED DATE/TIME: 03/20/2019 1:21 pm REASON FOR STUDY: chest pain COMPARISON: PA and lateral views of the chest from 07/30/2018. EXAM PARAMETERS: NUMBER OF VIEWS: two views TECHNIQUE: PA and lateral views of the chest were obtained. RADIATION DOSE: NA LIMITATIONS: none FINDINGS: LUNGS AND PLEURA: No consolidation, pleural effusion or pneumothorax. MEDIASTINUM AND HILAR STRUCTURES: No mediastinal or hilar contour abnormality. HEART AND VASCULAR STRUCTURES: The cardiac silhouette and pulmonary vasculature are within normal aguirre its. BONES: No acute findings. HARDWARE: None in the chest. OTHER: No other finding. IMPRESSION: No acute cardiopulmonary process. TECHNICAL DOCUMENTATION: JOB ID: [id number] [employer]- All Rights Reserved Reading location - IP/workstation name: [email or web address]
[2019-03-20 13:39] LABS: CREATINE KINASE MB 1.82 ng/mL (<4.55)
[2019-03-20 13:40] LABS: TROPONIN I < 0.012 ng/mL
--- NOTE | 2019-03-20 13:41 | ER Document Report ---
ED Cardiac - General Chief Complaint: Chest Tightness Stated Complaint: CHEST TIGHTNESS Time Seen by Provider: 03/20/19 12:49 [facility] - Follow up as needed TRAVEL OUTSIDE OF THE [place] IN LAST 30 DAYS: No - HPI Notes: 38m h/o cardiac work-ups including echocardiograms few times over the last year, who presents today ambulatory for cp since awaking with it on Monday morning and which has persisted today. It is a heaviness and pressure throughout the middle of his chest that does not radiate. He is also noted shortness of br eath says it seems constant and never fully gone and it first says it does not seem to necessarily be worsened by exertion, but notes he has been "pacing himself" when walking around to avoid getting more chest pressure or feelings of shortness of breath. He says he seems worse when he is lying flat. No swelling in his extremities no other swelling no weight gain. He denies any recent or current fevers. No passing out near passing out. No LIRA, vision change or focal neurologic deficit. No skin changes. No wheezing or coughing. He says he does not necessarily have any pleuritic pain. He says he was seen by a marketing community liaison Dr. Haas actually a few days ago in [place] who he had messaged through the EMR today. Dr. Brooks said I do not think it is likely your heart but you should go to the nearest emergency room to make sure you not have a clot in your lung. Patient has no history of personal clot, family history of any clotting disorder. No family history of sudden or cardiac disease he knows of. He says that he was worked up for chest pain shortness of breath and may in [facility] and had a echocardiogram showing some he says left ventricle swelling. He says the only lab abnormality was that he has a had a very high CK level like they told him that he had been working out a lot. He says he did not require hospitalization. He says he in the interim has not had difficulty with daily activities. He has lost significant amount of weight over the last year as he is joined the [employer] is going to school he was 280 pounds less than a year ago. - Related Data Allergies/Adverse Reactions: apple [Apple] Allergy (Severe, Verified 03/20/19 14:08) Anaphylaxis bee venom protein (honey bee) Allergy (Verified 03/20/19 14:08) Past Medical History - Social History Family History: Reviewed & Not Pertinent Pulmonary Medical History: Reports: Hx Asthma Renal/ Medical History: Denies: Hx Peritoneal Dialysis Past Surgical History: Reports: Hx Abdominal Surgery - iing. jacob, "lymph node" sx, RLQ, Hx Orthopedic Surgery - right knee - Immunizations Hx Diphtheria, Pertussis, Tetanus Vaccination: Yes Physical Exam - Vital signs Vitals: Resp Pulse Ox 13 100 03/20/19 12:35 03/20/19 12:35 Course - Re-evaluation Re-evalutation: 03/20/19 13:32 Patient was given 324 aspirin. We will try sublingual nitroglycerin. Since heart rates been in the 60s since he arrived and his blood pressure has been stable within normal limits. - Vital Signs Vital signs: Temp Pulse Resp BP Pulse Ox 98.5 F 15 141/90 H 99 03/20/19 17:25 03/20/19 20:01 03/20/19 20:01 03/20/19 20:01 - Laboratory Result Diagrams: 03/20/19 12:40 03/20/19 12:40 Laboratory results interpreted by me: 03/20/19 03/20/19 12:40 12:40 RBC 5.96 H MCV 79 L MCH 26.7 L RDW 14.1 H Creatine Kinase 338 H Total Protein 8.9 H - EKG Interpretation by Me Additional EKG results interpreted by me: 03/20/19 13:30 ECG reviewed today by me compared to prior on July 2018. Today is normal sinus rhythm unchanged borderline Q waves in the inferior leads. Rate of 65, [place] QTC QRS all within normal limits. He has no change in his ST elevation in V2 V3 without reciprocal change. No ectopy. [place] within normal limits and is unchanged. Voltage within normal limits unchanged. No evidence of pericarditis or hypertrophy. Discharge - Discharge Clinical Impression: Elevated CK Condition: Fair Disposition: HOME, SELF-CARE Additional Instructions: Today your EKG looks within normal limits and unchanged from your prior. Your CK level was high today but not as high as it usually is it is been 700 600 in the past today is 344. Your kidneys look like they are healthy and functioning well and does not look like you have evidence of active rhabdomyolysis. I do not think you are having a clot in your lung. Your oxygen level has been great the whole time without any supplemental oxygen and your heart rate is been normal also we ambulated you around the emergency department you had no drop in oxygen or increase in heart rate. I think your pain is from some muscle break down associated with these exacerbations you have been having on and off where her CK level increases. Please call tomorrow first thing to arrange follow-up with your primary care doctor. They should consider investigating a specific reason you have such high CK levels. Therefore specialist ultimately may be an editorial specialist may be a good idea. Please also call your cardiology office and let them know you were seen today and I would like you to see them for your neck schedule follow-up. Today I do not see any evidence of heart failure or pericarditis or other heart damage. Please return if you have shortness of breath, sensation that you cannot breathe or passing out or near pa ssing out or any weakness tingling or you have very dark urine that is not improving. Prescriptions: Ibuprofen 600 mg PO Q6HP PRN #[id number] tablet PRN Reason: [facility]errals: [facility] [[facility]] - Follow up as needed
[2019-03-20] MEDS ORDERED: ASPIRIN 81 MG TABLET, CHEWABLE PO ONE (13:42)
[2019-03-20 13:43] LABS: APPEARANCE,URINE CLEAR; BILIRUBIN,URINE NEGATIVE (NEGATIVE); COLOR,URINE YELLOW; GLUCOSE, URINE NEGATIVE (NEGATIVE); KETONES,URINE NEGATIVE (NEGATIVE); LEUKOCYTE ESTERASE,URINE NEGATIVE (NEGATIVE); NITRITE,URINE NEGATIVE (NEGATIVE); PROTEIN,URINE NEGATIVE (NEGATIVE); URINE SPECIFIC GRAVITY 1.019; UROBILINOGEN,URINE NEGATIVE mg/dL (<2.0)
[2019-03-20] MEDS ORDERED: NITROGLYCERIN 0.4 MG/TAB 25 TAB/BOTTLE SL PRN ×2 (14:14→15:10)
[2019-03-20] MEDS ORDERED: OXYCODONE HCL IR 5 MG TABLET PO ONE (16:59)
[2019-03-20] MEDS ORDERED: HYDROMORPHONE HCL INJ/PF 2 MG/ML AMPULE IV ONE ×3 (17:08→18:17)
[2019-03-20] MEDS ORDERED: RINGERS SOLUTION,LACTATED 1,000 ML IV ONE (17:20)
[2019-03-20] MEDS ORDERED: KETOROLAC TROMETHAMINE INJ/PF 30 MG/1 ML SDV IV ONE (18:18)
[2019-03-20 20:54] VITALS: BP 133/86
--- NOTE | 2019-03-21 09:36 | EKG REPORT ---
SEVERITY:- BORDERLINE ECG - SINUS RHYTHM BORDERLINE INFERIOR Q WAVES ST ELEV, PROBABLE NORMAL EARLY REPOL PATTERN : Confirmed by: Nevin Valenzuela 21-Mar-2019 09:35:34
== END 2019-03-20 21:00 | disposition home or self-care (01) ==
LOC: ER 12:13
DX: R74.8 Abnormal levels of other serum enzymes (principal); R07.9 Chest pain, unspecified; R06.02 Shortness of breath; J45.909 Unspecified asthma, uncomplicated
CPT/HCPCS: 93005; 96376; 99285; 96361; 96374; 96375; 36415; 82553; 82550; 83735; 84443; 85025; 83874; 80053; 81001; 84484; 83880; 71046; 93010; J1885; J1170; J7120

== ENCOUNTER 2020-02-15 19:48 | Emergency (ER) | payer OTHER ==
--- NOTE | 2020-02-15 20:23 | ER Document Report ---
ED Medical Screen (RME) - General Stated Complaint: SHORTNESS OF BREATH/HEADACHE/COUGH/LOSS OF TASTE Time Seen by Provider: 02/15/20 20:16 Primary Care Provider: DEVEN,SAMSON [Primary Care Provider] - Follow up as needed Mode of Arrival: Ambulatory Information source: Patient Notes: HPI; 39-year-old male past medical history significant for shingles, PTSD, CHF, asthma, sleep apnea presents emergency room complaining of shortness of breath that started 45 minutes prior to arrival. Persistent headache all day. Patient states he tested positive for Covid 2 days ago. He had had 2+ exposures in the past 2 weeks. States has been taking Tylenol with minimal relief. Also states has been running fevers of 101. Denies any nausea, vomiting, no chest pain, no diarrhea. PE: Alert and oriented x3. Lungs: Scattered rhonchi no wheezes no rales. Heart: Regular rate rhythm without murmurs, rubs, gallops. I have greeted and performed a rapid initial assessment of this patient. A comprehensive ED assessment and evaluation of the patient, analysis of test results and completion of the medical decision making process will be conducted by additional ED providers. I have specifically instructed the patient or family members with the patient to immediately return to any nursing staff should anything change in the patient's condition or with their chief complaint. TRAVEL OUTSIDE OF THE [place] IN LAST 30 DAYS: No - Related Data Allergies/Adverse Reactions: apple [Apple] Allergy (Severe, Verified 03/20/19 14:08) Anaphylaxis bee venom protein (honey bee) Allergy (Verified 03/20/19 14:08) Past Medical History Pulmonary Medical History: Reports: Hx Asthma Renal/ Medical History: Denies: Hx Peritoneal Dialysis Past Surgical History: Reports: Hx Abdominal Surgery - iing. jacob, "lymph node" sx, RLQ, Hx Orthopedic Surgery - right knee - Immunizations Hx Diphtheria, Pertussis, Tetanus Vaccination: Yes Physical Exam - Vital signs Vitals: Temp Pulse Resp BP Pulse Ox 99.0 F 88 16 142/95 H 97 02/15/20 19:51 02/15/20 19:51 02/15/20 19:51 02/15/20 19:51 02/15/20 19:51 Course - Vital Signs Vital signs: Temp Pulse Resp BP Pulse Ox 99.0 F 88 16 142/95 H 97 02/15/20 19:51 02/15/20 19:51 02/15/20 19:51 02/15/20 19:51 02/15/20 19:51 Doctor's Discharge - Discharge [facility]errals: [facility] [[facility] - Follow up as needed
[2020-02-15 21:08] LABS: ABSOLUTE LYMPHOCYTES (AUTO) 1.1 10^3/uL (0.5-4.7); ABSOLUTE MONOCYTES (AUTO) 0.3 10^3/uL (0.1-1.4); ABSOLUTE NEUT (AUTO) 2.9 10^3/uL (1.7-8.2); BASOPHILS % (AUTO) 0.6 % (0-2); EOSINOPHILS % (AUTO) 0.4 % (0-6); HEMATOCRIT 47.5 % (37.9-51.0); LYMPHOCYTES % (AUTO) 26.3 % (13-45); MEAN CORPUSCULAR HEMOGLOBIN 26.8 pg (27.0-33.4); MEAN CORPUSCULAR HGB CONC 33.7 g/dL (32.0-36.0); MEAN CORPUSCULAR VOLUME 80 fl (80-97); MONOCYTES % (AUTO) 6.3 % (3-13); PLATELET COUNT 184 10^3/uL (150-450); RED BLOOD COUNT 5.97 10^6/uL (4.35-5.55); RED CELL DISTRIBUTION WIDTH 13.4 % (11.5-14.0); SEGMENTED NEUTROPHILS % (AUTO) 66.4 % (42-78); TOTAL CELLS COUNTED % (AUTO) 100 %; WHITE BLOOD COUNT 4.4 10^3/uL (4.0-10.5)
[2020-02-15 21:25] LABS: ALBUMIN 4.2 g/dL (3.5-5.0); ALKALINE PHOSPHATASE 105 U/L (38-126); ANION GAP 7 (5-19); ASPARTATE AMINO TRANSFERASE 72 U/L (17-59); BILIRUBIN,DIRECT 0.1 mg/dL (0.0-0.4); BILIRUBIN,TOTAL 0.5 mg/dL (0.2-1.3); BLOOD UREA NITROGEN 13 mg/dL (7-20); CALCIUM 9.1 mg/dL (8.4-10.2); CARBON DIOXIDE 28 mmol/L (22-30); CHLORIDE 102 mmol/L (98-107); GLUCOSE 97 mg/dL (75-110); POTASSIUM 3.9 mmol/L (3.6-5.0); TOTAL PROTEIN 8.4 g/dL (6.3-8.2)
[2020-02-15 21:37] LABS: NT PRO BNP 18 pg/mL (<125)
--- NOTE | 2020-02-15 21:48 | RADIOLOGY REPORT (SQ) ---
EXAM DESCRIPTION: X-RAY CHEST- One View CLINICAL HISTORY: Dyspnea COMPARISON: March 20, 2019 TECHNIQUE: Single view of the chest. FINDINGS: There are low lung volumes with compressive changes. There are no discrete air space infiltrates, pneumothoraces or pleural effusions. The pulmonary vascularity is normal. The cardiomediastinal silhouette is normal in size. Osseous structures are stable. IMPRESSION: No pulmonary opacities identified. Low lung volumes with compressive changes. Please note that chest radiographs have low sensitivity for subtle groundglass opacities.
[2020-02-15 21:50] LABS: TROPONIN I < 0.012 ng/mL
--- NOTE | 2020-02-15 22:00 | ER Document Report ---
ED General - General Chief Complaint: Shortness Of Breath Stated Complaint: SHORTNESS OF BREATH/HEADACHE/COUGH/LOSS OF TASTE Time Seen by Provider: 02/15/20 20:16 Primary Care Provider: SAMSON CARVALHO [Primary Care Provider] - Follow up in 3-5 days Mode of Arrival: Ambulatory TRAVEL OUTSIDE OF THE [place] IN LAST 30 DAYS: No - HPI Notes: 39-year-old male to the emergency department with complaints of cough and shortness of breath that has gotten significantly worse in the past 45 minutes. He states that he tested positive for Covid 19 2 days ago. He is being followed closely through the [place] [facility]. They have a plan to send in the pulse oximeter. However, when he got more short of breath today he got concerned. He also complains of body aches and feeling like his chest hurts especially when he is taking a big deep breath or coughing. He does have a past medical history significant for asthma as well as CHF, PTSD. - Related Data Allergies/Adverse Reactions: apple [Apple] Allergy (Severe, Verified 02/15/20 21:58) Anaphylaxis bee venom protein (honey bee) Allergy (Verified 02/15/20 21:58) Home Medications: gabapentin, valcycloviar, benadryl, benadryl Past Medical History - General Information source: Patient - Social History Smoking Status: Former Smoker Frequency of alcohol use: None Drug Abuse: None Family History: Reviewed & Not Pertinent Pulmonary Medical History: Reports: Hx Asthma Renal/ Medical History: Denies: Hx Peritoneal Dialysis Musculoskeletal Medical History: Reports Hx Arthritis Past Surgical History: Reports: Hx Abdominal Surgery - iing. jacob, "lymph node" sx, RLQ, Hx Orthopedic Surgery - right knee - Immunizations Hx Diphtheria, Pertussis, Tetanus Vaccination: Yes Review of Systems - Review of Systems Constitutional: Chills, Fever, Malaise EENT: Throat pain Cardiovascular: See HPI, Chest pain. denies: Palpitations, Heart racing, Dyspnea, Syncope, Dizziness, Lightheaded Respiratory: Cough, Hurts to breathe, Short of breath Gastrointestinal: denies: Abdominal pain, Diarrhea, Nausea, Vomiting Musculoskeletal: See HPI, Muscle pain Skin: No symptoms reported Hematologic/Lymphatic: No symptoms reported Neurological/Psychological: No symptoms reported -: Yes All other systems reviewed and negative Physical Exam - Vital signs Vitals: Temp Pulse Resp BP Pulse Ox 99.0 F 88 16 142/95 H 97 02/15/20 19:51 02/15/20 19:51 02/15/20 19:51 02/15/20 19:51 02/15/20 19:51 Interpretation: Hypertensive - Notes Notes: PHYSICAL EXAMINATION: GENERAL: well-nourished and in no acute distress. Patient is coughing curled up in bed. Does look like when he coughs and takes a big deep breath it hurts to do so. HEAD: Atraumatic, normocephalic. EYES: Pupils equal round and reactive to light, extraocular movements intact, sclera anicteric, conjunctiva are normal. ENT: nares patent, oropharynx clear without exudates. Moist mucous membranes. TMs clear bilaterally; airway is grossly patent NECK: Normal range of motion, supple without lymphadenopathy LUNGS: Decreased breath sounds throughout with mild rhonchi. There is no rales and there is no wheezing. Patient is not in respiratory distress. He has a solid oxygen saturation on room air and can speak to me in full sentences. He does have tenderness to palpation over the anterior chest wall without crepitus or step-off HEART: Regular rate and rhythm without murmurs ABDOMEN: Soft, nontender, normoactive bowel sounds. No guarding, no rebound. No masses appreciated. EXTREMITIES: Normal range of motion, no pitting or edema. No cyanosis. NEUROLOGICAL: No focal neurological deficits. Moves all extremities spont aneously and on command. PSYCH: Normal mood, normal affect. SKIN: Warm, Dry, normal turgor, no rashes or lesions noted. Course - Re-evaluation Re-evalutation: Impression: COVID-19 infection, shortness of breath, cough, chest wall pain. Patient has reassuring labs and chest x-ray. No anjana pneumonia seen on chest x-ray. Give patient a breathing treatment as well as Decadron and he is feeling a lot better. I have educated him to [facility] and monitor his oxygen levels at home. To return if he gets worsening shortness of breath his oxygen levels dropped below 92% on the pulse oximeter. Will send home with an albuterol inhaler and cough medicine. Patient agrees with the plan. Patient was provided with discharge information including: Remain at home until you are cleared by the healthcare provider public health authorities. Keep a log of visitors to your home and notify any visitors to your home of your isolation status. If you plan to move to a new address or leave the country, notify the local health department and your County. Call your doctor or seek care if you have an urgent medical need. Before seeking medical care, call ahead to get instructions from the provider before arriving at the medical office, clinic, or hospital. Notify them that you are being tested for the virus that causes COVID-19 so that arrangements can be made, as necessary, to prevent transmission to others in the healthcare setting. Next, notify the local health department and your County. If a medical emergency arises and you need to call 911, informed the first responders that you are have tested positive for the virus that causes COVID-19. Next, notified the local health department and your County. - Vital Signs Vital signs: Temp Pulse Resp BP Pulse Ox 98.6 F 78 16 128/78 H 96 02/16/20 00:46 02/16/20 00:46 02/16/20 00:46 02/16/20 00:46 02/16/20 00:46 - Laboratory Result Diagrams: 02/15/20 20:47 02/15/20 20:47 Laboratory results interpreted by me: 02/15/20 02/15/20 20:47 20:47 RBC 5.97 H MCH 26.8 L AST 72 H Total Protein 8.4 H - Diagnostic Test Radiology reviewed: Image reviewed, Reports reviewed Discharge - Discharge Clinical Impression: COVID-19, Cough, Chest wall pain Condition: Stable Disposition: HOME, SELF-CARE Additional Instructions: Please follow-up with the [place] [facility]. Did not have pneumonia on your chest x-ray today. You are not requiring supplemental oxygen. Please await the pulse oximeter that the [place] is sending you. Please use it. If you have increasing shortness of breath and your pulse oximeter reads below 92% please return to the emergency department. Please use albuterol inhaler. Use the cough medicine as well. Rest at home and quarantine. Prescriptions: Albuterol Sulfate [Proair HFA Inhalation Aerosol 8.5 gm MDI] 2 puff IH Q4H PRN #1 mdi PRN Reason: Promethazine/Dextromethorphan [Promethazine-Dm Solution] 5 ml PO Q8H #118 ml Forms: Return to Work Referrals: [facility] [[facility]] - Follow up in 3-5 days
[2020-02-15] MEDS ORDERED: DEXAMETHASONE SOD PHOS INJ 10 MG/1 ML VIAL IM ONE (23:14)
[2020-02-15] MEDS ORDERED: IPRATROPIUM/ALBUTEROL 0.5-2.5 MG/3 ML AMPUL NEB ONE (23:14)
[2020-02-15] MEDS ORDERED: KETOROLAC TROMETHAMINE 60 MG/2 ML SDV IM ONE (23:14)
[2020-02-16 00:51] VITALS: BP 128/78
--- NOTE | 2020-02-16 08:38 | EKG REPORT ---
SEVERITY:- BORDERLINE ECG - SINUS RHYTHM PROBABLE LEFT ATRIAL ABNORMALITY ST ELEV, PROBABLE NORMAL EARLY REPOL PATTERN : Confirmed by: Brandt Baca MD 16-Feb-2020 08:37:49
== END 2020-02-16 00:50 | disposition home or self-care (01) ==
LOC: ER 19:48
DX: U07.1 COVID-19 (principal); R07.81 Pleurodynia; R06.02 Shortness of breath; R50.9 Fever, unspecified; R53.81 Other malaise
CPT/HCPCS: 93005; 94640; 99285; 96372; 36415; 85025; 80053; 84484; 83880; 71045; 93010; J1885; J1100